=== PATIENT | male | born 1980 | race Caucasian/White ===

== ENCOUNTER 2019-07-13 15:11 | Emergency (ER) | payer OTHER, SELFPAY ==
[2019-07-13 15:20] VITALS: BP 145/84; PULSE 90; RESP 18; TEMP 36.9; O2SAT 98; BMI 27.8
[2019-07-13 15:29] VITALS: BP 145/96; PULSE 96; RESP 24; TEMP 36.9; O2SAT 97; BMI 27.8
--- NOTE | 2019-07-13 15:29 | XR_ITS ---
PROCEDURE: XR RIBS RT 2V CLINICAL INDICATION: PAIN COMPARISON: No exams were available for comparison FINDINGS: Multiple views of the right ribs show no obvious fracture. No lytic or blastic change. Consider follow-up in 7-[address] with 3D reformats if pain persists Frontal view of the chest shows no acute finding IMPRESSION: No acute findings. Dictated by: Cornelius Dallas MD 07/13/2019 17:02 Electronically signed by Cornelius Dallas MD in [place] 07/13/2019 17:02
--- NOTE | 2019-07-13 15:47 | HMH.EDUTC ---
[facility] [place]: Costochond[place] Disposition: Home, Self-Care Condition on Discharge: Good Instructions: DI for Rib Contusion Additional Instructions: Make sure you cough and deep breath regularly. Take the ibuprofen as prescribed. Follow up with your regular doctor. GO TO THE ER FOR WORSENING SYMPTOMS Prescriptions: Ibuprofen [Ibuprofen 800mg Tablet] 800 mg PO Q8HP PRN #30 tab PRN Reason: Moderate Pain Transmission Status: Received by [facility] Referrals: Provider,Referral, [Primary Care Provider] - Time of Disposition: 16:23 Medical Decision Making - Medical Records Medical records reviewed: No: I reviewed the patient's medical records. - Albert Inquiry Pt receiving controlled substance: No Vital Signs: 07/13/19 15:20 07/13/19 15:29 07/13/19 16:40 Temperature 98.5 F 98.4 F 98.4 F Temperature Source Oral Oral Pulse Rate 96 H Pulse Rate [Right] 90 96 H Respiratory Rate 18 24 24 Blood Pressure 145/96 H Blood Pressure [Right Arm] 145/84 H 145/96 H Blood Pressure Mean [Right Arm] 104 112 Blood Pressure Source [Right Arm] Automatic Cuff Blood Pressure Position [Right Arm] Sitting 02 Sat by Pulse Oximetry 98 97 Oxygen Delivery Method Room Air Orders (Tests/Meds): ED MEDICATIONS Discontinued Medications Generic Name Dose Route Start Last Admin Trade Name Freq PRN Reason Stop Dose Admin Ketorolac Tromethamine 60 mg 07/13/19 16:18 07/13/19 16:30 Toradol 60mg/2ml Vial IM 07/13/19 16:19 60 mg ONCE ONE Administration - Radiology Data #1 Image(s): Chest Image Reviewed: Yes I reviewed the patient's radiology image, Yes I have reviewed radiologist's interpretation Preliminary Findings: No Fracture Seen PROCEDURE: XR RIBS RT 2V CLINICAL INDICATION: PAIN COMPARISON: No exams were available for comparison FINDINGS: Multiple views of the right ribs show no obvious fracture. No lytic or blastic change. Consider follow-up in 7-[address] with 3D reformats if pain persists Frontal view of the chest shows no acute finding IMPRESSION: No acute findings. Dictated by: Cornelius Dallas MD 07/13/2019 17:02 Electronically signed by Cornelius Dallas MD in [place] 07/13/2019 17:02 [facility] [place] [facility] [place] - General Stated complaint: Pain in right rib area Time Seen by Provider: 07/13/19 15:47 Mode of Arrival: Ambulatory Source of Information: Patient Limitations: No Limitations Description of Symptoms (Recalled from Triage Doc. by RN): PATIENT STATES THAT APPROX 2 DAYS AGO HE SNEEZED AND CAUSED SEVERE PAIN TO HIS RIGHT RIB AREA. LAST NIGHT HE SNEEZED AGAIN AND THE PAIN INTENSIFIED. DENIES SOA, HOWEVER STATES PAIN INCREASED WITH TAKING A DEEP BREATH AND CERTAIN MOVEMENT HEENT Symptoms (Recalled from RN notes): No Resp Symptoms (Recalled from RN notes): No Skin Symptoms (Recalled from RN notes): No MS Symptoms (Recalled from RN notes): Yes Functional Status (Recalled from RN notes): WNL - History of Present Illness Provider Complaint: He states that 2 days ago he sneezed very hard and then began having right rib pain with cough, deep breathing and twisting. He denies any shortness of breath. - Related Data Previous Rx's Medication Instructions Recorded Ibuprofen [Ibuprofen 800mg 800 mg PO Q8HP PRN #30 tab 07/13/19 Tablet] Allergies Allergy/AdvReac Type Severity Reaction Status Date / Time No Known Allergies Allergy Unverified 01/25/17 14:52 - Worker's Comp Is this a Worker's Comp case?: No [facility] History - Hepatitis A Screen Drug use history?: No High risk sexual behaviors?: No History of sexually transmitted infection?: No Currently employed?: No Childcare worker?: No Do you have indoor plumbing?: Yes Do you have electricity?: Yes Attestation statement:: This patient has been screened for Hepatitis A risk factors. I have reviewed the patient's past m
[2019-07-13 16:40] VITALS: BP 145/96; PULSE 96; RESP 24; TEMP 36.9; O2SAT 97
== END 2019-07-13 16:45 | disposition home or self-care (01) ==
PROVIDERS: Emergency Provider Nurse Practitioner Family
DX: M94.0 Chondrocostal junction syndrome [Tietze] (principal)
CPT/HCPCS: 71100; 96372; 99201; 99202

== ENCOUNTER 2019-09-11 07:04 | Emergency (ER) | payer OTHER, SELFPAY ==
[2019-09-11 07:17] VITALS: BP 116/84; PULSE 91; RESP 17; TEMP 36.6; O2SAT 97; BMI 27.8
--- NOTE | 2019-09-11 07:59 | HMH.EDURI ---
ED Disposition Clinical Impression: Upper respiratory infection, Viral infection Disposition: Home, Self-Care Condition on Discharge: Good Instructions: DI for Acute Bronchitis Prescriptions: Azithromycin 250 mg PO DAILY 5 Days #6 tab Transmission Status: Pending to [facility] Referrals: PCP,No [Primary Care Provider] - - Critical Care Critical Care Time: No Attestation: On 09/11/19, the high probability of a clinically significant, sudden or life threatening deterioration of the following system(s) required my full and direct attention, intervention and personal management. The time I documented below is in addition to time spent performing reported procedures but includes the following listed in this critical care notation. Medical Decision Making - Medical Records Medical records reviewed: Yes: I reviewed the patient's medical records. - Albert Inquiry Pt receiving controlled substance: No Vital Signs: 09/11/19 07:17 Temperature 97.8 F Temperature Source Oral Pulse Rate [Right Radial] 91 H Respiratory Rate 17 Blood Pressure [Right Arm] 116/84 Blood Pressure Mean [Right Arm] 94 02 Sat by Pulse Oximetry 97 Oxygen Delivery Method Room Air - Lab Data Lab results reviewed: Yes: I reviewed the patient's lab results. Orders (Tests/Meds): ORDERS Category Date Time Status SARS-CoV-2, REGINALD Stat Lab 09/11/19 07:53 Ordered URI/Sore Throat HPI - General Chief Complaint: Upper Respiratory Infection Stated Complaint: sore throat and runny nose Time Seen by Provider: 09/11/19 07:50 Mode of Arrival: Ambulatory Source of Information: Patient Limitations: No Limitations Description of Symptoms (Recalled from ER Triage Doc. by RN): pt reports to ed with c/o sore throat and runny nose. pt denies fever. pt states that his boss wanted him checked out before he came to work. - History of Present Illness HPI Narrative: 39-year-old male presents the emergency room with sore throat and congestion. He states his sore throat started 2 days ago and patient denies any other symptoms except for rhinorrhea. Patient denies any overt or subjective fever shakes or chills. Patient denies any loss of taste or smell patient denies any malaise or body aches. Patient denies any shortness of breath. - Related Data Previous Rx's Medication Instructions Recorded Ibuprofen [Ibuprofen 800mg 800 mg PO Q8HP PRN #30 tab 07/13/19 Tablet] Azithromycin 250 mg PO DAILY 5 Days #6 tab 09/11/19 Allergies Allergy/AdvReac Type Severity Reaction Status Date / Time No Known Allergies Allergy Verified 09/11/19 07:22 [facility] History - Hepatitis A Screen Drug use history?: No High risk sexual behaviors?: No History of sexually transmitted infection?: No Currently employed?: No Childcare worker?: No Do you have indoor plumbing?: Yes Do you have electricity?: Yes Attestation statement:: This patient has been screened for Hepatitis A risk factors. I have reviewed the patient's past medical history: Yes Medical History: Denies:: Diabetes Mellitus Type 1, Diabetes Mellitus Type 2 - Social History Smoking Status: Current every day smoker # Packs/Day (cigarettes): 1 Alcohol Intake: never Occupational Status: employed ROS Obtained: Yes All systems reviewed & no additional complaints - Constitutional Constitutional: Reports system reviewed and no additional complaints, except as docu - Eyes Eyes: Reports system reviewed and no additional complaints, except as docu - ENT Ears, Nose, Mouth, and Throat: Reports system reviewed and no additional complaints, except as docu - Cardiovascular Cardiovascular: Reports system reviewed and no additional complaints, except as docu - Respiratory Respiratory: Yes system reviewed and no additional complaints, except as docu - Gastrointestinal Gastrointestingal: Reports: system reviewed and no additional complaints, except as docu - Genitourinary
--- NOTE | 2019-09-11 08:03 | PC.NURSE ---
ER MD gave verbal order for Dexamethasone 10 mg IM one time dose.
[2019-09-11 08:16] VITALS: BP 119/79; PULSE 85; RESP 16; TEMP 36.6; O2SAT 99
[2019-09-12 12:48] LABS: Covid-19 Nasal PCR Sendout Lex Not Detected
== END 2019-09-11 08:19 | disposition home or self-care (01) ==
PROVIDERS: Emergency Provider Family Medicine
DX: J06.9 Acute upper respiratory infection, unspecified (principal); Z03.818 Encounter for observation for suspected exposure to other biological agents ruled out; F17.210 Nicotine dependence, cigarettes, uncomplicated
CPT/HCPCS: 96372; 99282; U0004

== ENCOUNTER 2020-06-11 20:08 | Emergency (ER) | payer OTHER, SELFPAY ==
[2020-06-11 20:21] VITALS: BP 131/86; PULSE 76; RESP 18; TEMP 36.9; O2SAT 100; BMI 27.8
--- NOTE | 2020-06-11 20:26 | HMH.EDUTC ---
[facility] [place]: Encounter for laboratory testing for COVID-19 virus Disposition: Home, Self-Care Condition on Discharge: Good Instructions: DI for COVID-19 (Suspected or Confirmed ), COVID-19: Testing and Tracing, Preventing the Spread of Coronavirus Discharge Instructions Additional Instructions: *Monitor Temp, Over the counter Motrin or Tylenol as directed/as needed Tylenol every 4 hours and Motrin every 6 hours (as long as your family doctor has told you that you can take it) for fever or pain. and straight to ER if unable to lower temp less than 101.0 after medication given Follow up IMMEDIATELY for new or worsening symptoms or no Noticeable improvement over the next 48-72 hours. 911 for difficulty breathing or swallowing You were tested for today for COVID19 your test result should be back in the next 24-48 hours, you may call to the [facility] to see if your test results are back in the next 48 hours [phone] [facility] hours are 9am-9pm You was given a handout with instructions for Self Quarantine and Self isolation for while you wait on test results and what to do if they are positive If you are positive the Health Dept will be contacting you also Referrals: Provider,Referral, MD [Primary Care Provider] - As needed Forms: Work/School Release Time of Disposition: 20:29 Medical Decision Making - Albert Inquiry Pt receiving controlled substance: No Albert was queried for this patient: No Vital Signs: 06/11/20 20:21 Temperature 98.4 F Temperature Source Oral Pulse Rate [Right Brachial] 76 Respiratory Rate 18 Blood Pressure [Right Arm] 131/86 Blood Pressure Mean [Right Arm] 101 Blood Pressure Source [Right Arm] Automatic Cuff Blood Pressure Position [Right Arm] Sitting 02 Sat by Pulse Oximetry 100 [facility] [place] - General Stated complaint: covid test Time Seen by Provider: 06/11/20 20:26 Mode of Arrival: Family Vehicle Description of Symptoms (Recalled from Triage Doc. by RN): Pt needing covid test for work. No symptoms or direct exposure. HEENT Symptoms (Recalled from RN notes): No Resp Symptoms (Recalled from RN notes): No Skin Symptoms (Recalled from RN notes): No MS Symptoms (Recalled from RN notes): No Functional Status (Recalled from RN notes): wnl - History of Present Illness Provider Complaint: Patient states that he was around someone at work whos daughter tested positive for COVID earlier today and his boss wanted him to come in and get tested States that he is not having any symptoms at this time and was not directly around the child that was positive - Related Data Previous Rx's Medication Instructions Recorded Ibuprofen [Ibuprofen 800mg 800 mg PO Q8HP PRN #30 tab 07/13/19 Tablet] Azithromycin 250 mg PO DAILY 5 Days #6 tab 09/11/19 Allergies Allergy/AdvReac Type Severity Reaction Status Date / Time No Known Allergies Allergy Verified 09/11/19 07:22 - Worker's Comp Is this a Worker's Comp case?: No [facility] History - Hepatitis A Screen Drug use history?: No High risk sexual behaviors?: No History of sexually transmitted infection?: No Currently employed?: No Childcare worker?: No Do you have indoor plumbing?: Yes Do you have electricity?: Yes Attestation statement:: This patient has been screened for Hepatitis A risk factors. I have reviewed the patient's past medical history: Yes Medical History: Denies:: Diabetes Mellitus Type 1, Diabetes Mellitus Type 2 - Social History Smoking Status: Never smoker # Packs/Day (cigarettes): 1 Alcohol Intake: never Occupational Status: employed Household Members: family ROS Obtained: Yes All systems reviewed & no additional complaints, Yes Systems reviewed as appropriate & no additional complaints - Constitutional Constitutional: Reports system reviewed and no additional complaints, except as docu, Denies body ache, Denies chills, Denies fever(s) - ENT Ears, Nose, Mouth, and Throat: Reports system re
[2020-06-11 20:41] VITALS: BP 131/86; PULSE 76; RESP 19; TEMP 36.9; O2SAT 100
--- NOTE | 2020-06-13 12:10 | PC.NURSE ---
pt notified of positive covid result
== END 2020-06-12 12:01 | disposition home or self-care (01) ==
PROVIDERS: Emergency Provider Nurse Practitioner
DX: U07.1 COVID-19 (principal)
CPT/HCPCS: 99202; G0463; U0003

== ENCOUNTER 2020-10-30 19:30 | Emergency (ER) | payer OTHER, SELFPAY ==
[2020-10-30] VITALS (8 sets, daily range): BP systolic 111–171; BP diastolic 80–106; PULSE 90–108; RESP 16–21; TEMP 36.8–37.2; O2SAT 95–99; BMI 27.7; BMI 30.4
--- NOTE | 2020-10-30 19:32 | XR_ITS ---
PROCEDURE INFORMATION: Exam: XR Chest Exam date and time: 10/30/2020 7:32 PM Age: 40 years old Clinical indication: Chest wall pain; Patient HX: Left sided chest pain TECHNIQUE: Imaging protocol: XR of the chest. Views: 1 view. COMPARISON: CR XR RIBS RT 2V 07/13/2019 3:47 PM FINDINGS: Lungs: Unremarkable. No consolidation. Pleural spaces: Unremarkable. No pleural effusion. No pneumothorax. Heart/Mediastinum: Unremarkable. No cardiomegaly. Bones/joints: Unremarkable. IMPRESSION: No acute findings.
--- NOTE | 2020-10-30 19:32 | ECG_ITS ---
APPROVED REPORT Exam: Resting ECG HR:104 bpm ECG Measurements Heart Rate 104 AXES DE 142 P 63 QRSd 78 QRS 57 QT 320 T 56 QTc 420 Conclusion Sinus tachycardia Late R wave progression Abnormal ECG Electronically signed by : Tao Romo MD 10/31/2020 17:37:00
[2020-10-30 19:57] LABS: Anion Gap 18.6 mEq/L (5-15); Blood Urea Nitrogen 15 mg/dl (9-20); Calcium 9.4 mg/dl (8.4-10.2); Carbon Dioxide 18 mmol/L (22.0-30.0); Chloride 108 mmol/L (98-107); Creatinine Clearance Estimated 139 mL/min (50-200); Estimated Glomerular Filt Rate 93 ml/min (>60); GFR (African American) 113 ML/MIN (>60); Glucose 97 mg/dl (74-100); Potassium 4.6 mmoL/L (3.5-5.1); Sodium 140 mmol/L (136-145)
[2020-10-30 20:02] LABS: C-Reactive Protein 6.1 mg/L (0-4)
[2020-10-30 20:16] LABS: Procalcitonin 0.051 ng/mL (0.0-2.0)
[2020-10-30 20:20] LABS: Troponin I < 0.01 ng/ml (0.00-0.034)
--- NOTE | 2020-10-30 20:31 | HMH.EDCP ---
ED Disposition Clinical Impression: Chest pain Qualifiers: Chest pain type: precordial pain Qualified Code(s): R07.2 - Precordial pain Disposition: Home, Self-Care Condition on Discharge: Good Instructions: DI for Chest Pain Additional Instructions: see card at 10 am for follow up and recheck ed if needed and take meds Prescriptions: Aspirin [Aspirin 81mg EC Tab] 81 mg PO DAILY #30 tab Prescription Printed Bisoprolol Fumarate [Bisoprolol 5mg Tablet] 5 mg PO DAILY #30 tab Prescription Printed Atorvastatin Calcium [Lipitor 20mg Tab] 20 mg PO HS #30 tab Prescription Printed Referrals: Provider,Referral, MD [Primary Care Provider] - - Critical Care Critical Care Time: No Attestation: On 10/30/20, the high probability of a clinically significant, sudden or life threatening deterioration of the following system(s) required my full and direct attention, intervention and personal management. The time I documented below is in addition to time spent performing reported procedures but includes the following listed in this critical care notation. Medical Decision Making - Medical Records Medical records reviewed: Yes: I reviewed the patient's medical records. - Albert Inquiry Pt receiving controlled substance: No Vital Signs: 10/30/20 19:30 10/30/20 21:26 Temperature 98.9 F Temperature Source Oral Pulse Rate 96 H Pulse Rate [Right] 108 H Respiratory Rate 18 16 Blood Pressure 124/85 Blood Pressure [Right Arm] 171/106 H Blood Pressure Mean [Right Arm] 127 Blood Pressure Source Automatic Cuff Blood Pressure Position Sitting 02 Sat by Pulse Oximetry 98 95 Oxygen Delivery Method Room Air Room Air - Lab Data Lab results reviewed: Yes: I reviewed the patient's lab results. Lab Results 10/30/20 19:43: Sodium 140, Potassium 4.6, Chloride 108 H, Carbon Dioxide 18 L, Anion Gap 18.6 H, BUN 15, Creatinine 0.90, Estimated Creat Clear 139, Estimated GFR 93, Est GFR ( Amer) 113, Glucose 97, Calcium 9.4, Troponin I < 0.01, C-Reactive Protein 6.1 H, Procalcitonin 0.051 Result diagrams: 10/30/20 19:43 Orders (Tests/Meds): ED MEDICATIONS Generic Name Dose Route Start Last Admin Trade Name Freq PRN Reason Stop Dose Admin Sodium Chloride 1,000 mls @ 999 mls/hr 10/30/20 19:45 Sod Chlor 0.9% 1000ml Bag IV 10/30/20 20:45 .Q1H1M STACEY Discontinued Medications Generic Name Dose Route Start Last Admin Trade Name Kellie PRN Reason Stop Dose Admin Aspirin 324 mg 10/30/20 19:42 Aspirin 81mg Chewable Tablet PO 10/30/20 19:43 ONCE ONE ORDERS Category Date Time Status Complete Blood Count Auto Diff Stat Lab 10/30/20 19:32 Ordered Erythrocyte Sedimentation Rate Stat Lab 10/30/20 19:32 Ordered Lipid Panel Stat Lab 10/30/20 19:43 Received Rapid PCR Covid and Flu A/B Stat Lab 10/30/20 19:42 Ordered Troponin I Q3H Lab 10/30/20 22:45 Ordered Troponin I Q3H Lab 10/31/20 01:45 Ordered - Radiology Data #1 Image(s): Chest Image Reviewed: Yes I have reviewed radiologist's interpretation Preliminary Findings: Normal/NAD - ECG Data Tracing #1 Normal Sinus Rhythm: Yes Ischemic changes: non-specific ST-T wave changes - Physician Consults Physician Consulted: collins Reason -: Pt condition Medical Decision Narrative: has chest pain with positive risk factors - will need to see card and have eval but pt wishes at this time to do it as op Chest Pain HPI - General Chief Complaint: Chest Pain Stated Complaint: Chest Pain Time Seen by Provider: 10/30/20 20:31 Mode of Arrival: Ambulatory Source of Information: Patient, Medical Record Limitations: No Limitations Description of Symptoms (Recalled from ER Triage Doc. by RN): C/O 7/10 LEFT SIDED CHEST PAIN, NON-RADIATING, THAT STARTED AT 1PM TODAY WHILE AT WORK FENCING WITH INTERMITTENT SOB. - History of Present Illness HPI narrative: pt with ant chest pain which pt has had over the last
[2020-10-30 21:41] LABS: Chol/HDL Ratio 8.5 (1-3.5); Cholesterol 230 mg/dl (140-200); HDL Cholesterol 27 mg/dl (40-60); Triglycerides 227 mg/dl (30-150); VLDL Cholesterol 45 mg/dL (0-40)
[2020-10-30 21:51] LABS: Direct LDL Cholesterol 163.07 mg/dL (100-129)
== END 2020-10-30 22:02 | disposition home or self-care (01) ==
PROVIDERS: Emergency Provider Emergency Medicine
DX: R07.2 Precordial pain (principal); F17.210 Nicotine dependence, cigarettes, uncomplicated
CPT/HCPCS: 71045; 80048; 80061; 84145; 84484; 86140; 93005; 96365; 99283

== ENCOUNTER → 2020-11-21 12:46 | Outpatient (CLI) | payer OTHER, SELFPAY ==
--- NOTE | 2020-11-21 | CA_ITS ---
APPROVED REPORT Exam: Exercise Treadmill Technologist: May Colby, Ht: 6 ft 0 in Wt: 211 lbs BSA: 2.18 m2 HR: 77 bpm BP: 124/80 mmHg Indications: Chest pain Stress Test Details Test: John HR Resting HR: 76 bpm Max Heart Rate (APMHR): 179.827199 bpm Max HR Achieved: 133 bpm Target HR (85% APMHR): 152.166883 bpm % of APMHR: 74.30 Recovery HR: 93 bpm BP Resting BP: 124/80 mmHg Max BP: 170/80 mmHg Recovery BP: 126.0/79.0 mmHg ECG Resting ECG: Sinus Rhythm Clinical Exercise duration: 10:29 min Highest Stage Achieved: Exercise capacity: 12.8 METs Stress ECG Conclusion Exercised 10:28. Stopped due to SOB, resolved in recovery. Pt did not reach target HR but did achieve 74% with no ischemic changes. *stress echo* Max HR: 133bpm % of PM: 74% Max BP: 170/80 MET's: 12.8 Symptoms: No CP (+)SOB during peak exercise. Arrythmias/Ectopy: Occ PVC. ST-T Changes: less than 1.5mm ST Depression. 1) GXT only 2) Did not achieve target HR 3) Appropriate BP response 4) Good exercise tolerance 5) No CP 6)Reached 74% of target HR with no ischemic changes Test Summary REST . . . . . . . Resting REST 04:13 0.0 0.0 76 . 124/ 80 . . Stage 1 01:00 10.0 1.7 96 . . . . Stage 1 02:00 10.0 1.7 102 . . . . Stage 1 03:00 10.0 1.7 107 . 140/ 70 . . Stage 2 01:00 12.0 2.5 111 . . . . Stage 2 02:00 12.0 2.5 114 . . . . Stage 2 03:00 12.0 2.5 117 . 150/ 80 . . Stage 3 01:00 14.0 3.4 119 . . . . Stage 3 02:00 14.0 3.4 119 . . . . Stage 3 03:00 14.0 3.4 121 . 170/ 80 . . Stage 4 01:00 16.0 4.2 130 . . . . Stage 4 01:29 16.0 4.2 133 . . . Stop exercise at 10:29 RECOVERY 01:00 0.0 0.0 110 . . . . RECOVERY 02:00 0.0 0.0 98 . . . . RECOVERY 03:00 0.0 0.0 100 . . . . RECOVERY 04:00 0.0 0.0 95 . 131/ 71 . . RECOVERY 05:00 0.0 0.0 92 . 131/ 71 . . RECOVERY 05:24 0.0 0.0 93 . 126/ 79 . . Electronically signed by : Joaquin Banrard MD 11/24/2020 21:03:10
--- NOTE | 2020-11-21 12:47 | CA_ITS ---
APPROVED REPORT EXAM: Comprehensive 2D, Doppler, and color-flow Echocardiogram Net Developer Consultant: Milla Boles RVT Ht: 6 ft 0 in Wt: 211lbs BSA: 2.18 BP: 120/80 mmHg Indications: cp,smoker,family hx heart disease,soa Stress Test Details HR Max Heart Rate (APMHR): 179.701698 bpm Target HR (85% APMHR): 152.344208 bpm BP ECG Conclusion 1. Patient exercised on John protocol achieved 12.8 mets of workload on treadmill and 74% of the maximum corrected heart rate, patient has adequate blood pressure response, there was no exercise-induced chest discomfort. 2. Resting echocardiogram showed normal left ventricular size and function with no regional wall motion abnormality, with exercise there is increase in contractility of all the segments of the myocardium with hyperdynamic left ventricular systolic response, with no regional wall motion abnormality to suggest underlying ischemic heart disease. Electronically signed by : Joaquin Barnard MD 11/24/2020 21:15:11
--- NOTE | 2020-11-21 12:47 | CA_ITS ---
APPROVED REPORT EXAM: Comprehensive 2D, Doppler, and color-flow Echocardiogram [employer] Supervisor: Paulina Kuhn RDCS Ht: 6 ft 0 in Wt: 211lbs BSA: 2.18 BP: 109/70 mmHg Indications: CP SOA 2D Dimensions LVOT 2.11 cm (M/F) 1.5-2.5 M-Mode Dimensions RVDd 3.14 cm (0.9-2.6) LA Diam 2.96 cm (1.9-4.0) LVDd 4.63 cm (3.5-5.7) Ao Diam 2.59 cm (2.0-3.7) LVDs 3.65 cm (3.5-5.7) IVSd 0.75 cm (0.6-1.1) PWd 0.77 cm (0.6-1.1) EF (Teich) 43.00% FS 21.20% EDV (Teich) 98.80 mL ESV (Teich) 56.30 mL LV Diastology E Decel Time 247.00 (160-240 msec) E/A Ratio 1.0 MED E' 8.70 (< 7 cm/sec) E'/MED E' Ratio 7.64 (>14) LAT E' 10.50 (<10 cm/sec) E/LAT E' Ratio 6.33 (>14) Mitral Valve MV E Max Vinicio. 66.00 (40-130 cm/s) MV A Velocity 66.00 (40-130 cm/s) E/A Ratio 1.01 MV Decel. Time 247.00 (160-240 ms) MV PHT 72.00 ms Left Ventricle Left atrium is normal size, left ventricle is normal size, there is no concentric left ventricular hypertrophy, visually estimated ejection fraction 55% with no regional wall motion abnormality, diastolic parameters are within normal range. Right Ventricle Right atrium and right ventricle are normal size and contractility. Aortic Valve Aortic valve is grossly normal, there is no aortic stenosis or aortic insufficiency. Mitral Valve Mitral valve is grossly normal, there is trace mitral regurgitation. Tricuspid Valve Tricuspid valve grossly normal, there is trace tricuspid regurgitation, tricuspid regurgitation jet velocity is inadequate for calculation of the right ventricular systolic pressure. Pulmonic Valve Pulmonic valve is poorly visualized. Great Vessels Aortic root is normal size. Inferior vena cava is normal size with normal inspiratory collapse. Pericardium No significant pericardial effusion noted. Conclusion 1. Normal left ventricular size, preserved left ventricular systolic function, visually estimated ejection fraction 55% with no regional wall motion abnormality, diastolic parameters are within normal range. 2. Trace mitral and tricuspid regurgitation. 3. No significant pericardial effusion noted. 4. Inferior vena cava is normal size with normal inspiratory collapse. Electronically signed by : Joaquin Barnard MD 11/24/2020 21:18:34
== END ==
PROVIDERS: PCP Emergency Medicine; Visit Provider Internal Medicine Cardiovascular Disease
DX: R06.00 Dyspnea, unspecified (principal); R07.2 Precordial pain; Z72.0 Tobacco use
CPT/HCPCS: 93017; 93306; 93350

== ENCOUNTER 2021-10-13 09:21 | Emergency (ER) | payer OTHER, SELFPAY ==
[2021-10-13 09:59] VITALS: BP 131/89; PULSE 87; RESP 16; TEMP 36.7; O2SAT 97; BMI 27.8
--- NOTE | 2021-10-13 10:13 | EXP.UTC ---
Discharge Plan Disposition Patient Disposition: Home, Self-Care Condition: Good Prescriptions Prescriptions: New azithromycin [Zithromax] 250 mg tablet 250 mg PO UD DOSE PK Qty: 6 0RF Rx Instructions: Take two (2) tablets today, then one (1) tablet days #2 thru #5 methylprednisolone 4 mg Tablets,Dose Pack 4 mg PO DIRECTED Qty: 21 0RF ondansetron 4 mg Tablet,Disintegrating 4 mg PO Q8H PRN (Reason: Nausea) Qty: 20 0RF No Action omeprazole 40 mg capsule,delayed release(DR/EC) 40 mg PO QDAY Qty: 30 1RF Rx Instructions: swallow whole; do not crush, chew, dissolve, or cut/break atorvastatin 20 mg tablet 20 mg PO HS Qty: 30 1RF bisoprolol fumarate 5 mg tablet 5 mg PO DAILY Qty: 30 1RF ibuprofen 800 MG tablet 800 mg PO Q8HP PRN (Reason: Moderate Pain) Qty: 30 0RF aspirin 81 MG tablet,delayed release (DR/EC) 81 mg PO DAILY Qty: 30 0RF Activity Restrictions/Add. Instructions Additional Instructions/Restrictions: Drink plenty of fluids. Take tylenol or ibuprofen for pain or fever. Take the medications as directed. Follow up with your regular doctor. GO TO THE ER FOR ANY WORSENING SYMPTOMS Quarantine until you know the results of your covid-19 test. Notify your school or workplace of your results and follow their instructions regarding return to work/school. Clinical Impressions Clinical Impression: COVID-19 Stand Alone Forms Stand Alone Forms: Work/School Release Instructions Patient Instructions: Coronavirus Disease 2019, Preventing the Spread of Coronavirus Discharge Instructions Discharge ED Provider: Get Estrada [facility] [place] H[place] General Stated complaint: body aches, cough, no smell/taste, runny nose,MICHAEL Mode of Arrival: Ambulatory Source of Information: Patient Limitations: No Limitations Time Seen by Provider: 10/13/21 10:12 Description of Symptoms (Recalled from Triage Doc. by RN): pts daughter had at home positive covid test today. pt c/o headache, no smell/taste, body aches, runny nose. symptoms began two days ago HEENT Symptoms (Recalled from RN notes): Yes Resp Symptoms (Recalled from RN notes): Yes Skin Symptoms (Recalled from RN notes): No MS Symptoms (Recalled from RN notes): No Functional Status (Recalled from RN notes): n/a History of Present Illness Provider Complaint: She had a + covid test today. She denies shortness of breath. Related Data Previous Rx's Medication Instructions Recorded ibuprofen 800 mg tablet 800 mg PO Q8HP PRN Moderate Pain 07/13/19 #30 tabs aspirin 81 mg tablet,delayed 81 mg PO DAILY #30 tabs 10/30/20 release atorvastatin 20 mg tablet 20 mg PO HS #30 tabs 11/07/20 bisoprolol fumarate 5 mg tablet 5 mg PO DAILY #30 tabs 11/07/20 omeprazole 40 mg capsule,delayed 40 mg PO QDAY #30 caps 11/07/20 release azithromycin 250 mg tablet 250 mg PO UD DOSE PK #6 tabs 10/13/21 (Zithromax) methylprednisolone 4 mg tablets in 4 mg PO DIRECTED #21 tabs 10/13/21 a dose pack ondansetron 4 mg disintegrating 4 mg PO Q8H PRN Nausea #20 tabs 10/13/21 tablet Allergies Allergy/AdvReac Type Severity Reaction Status Date / Time No Known Allergies Allergy Verified 10/13/21 10:02 Worker's Comp Is this a Worker's Comp case?: No PFSH PFSH Social History Smoking Status: Current every day smoker alcohol intake: never substance use type: denies use current occupational status: employed Travel in the last 8 weeks: Inside the [place] household members: family ROS Obtained: Yes All systems reviewed & no additional complaints except as documented Constitutional Constitutional: Reports system reviewed and no additional complaints, except as documented, Denies chills and Denies fever(s) Eyes Eyes: Denies eye discharge ENT Ears, Nose, Mouth, and Throat: Denies dysphagia, Denies sore throat and Denies throat swelling Cardiovascular Cardi
[2021-10-13 10:45] VITALS: BP 131/89; PULSE 87; RESP 16; TEMP 36.7
== END 2021-10-13 10:45 | disposition home or self-care (01) ==
PROVIDERS: Emergency Provider Nurse Practitioner Family
DX: U07.1 COVID-19 (principal); M79.10 Myalgia, unspecified site; R11.0 Nausea; R51.9 Headache, unspecified; F17.210 Nicotine dependence, cigarettes, uncomplicated; Z79.52 Long term (current) use of systemic steroids; Z79.82 Long term (current) use of aspirin; Z79.899 Other long term (current) drug therapy
CPT/HCPCS: 99213; C9803; G0463; U0003; U0005

== ENCOUNTER 2022-10-17 20:17 | Observation (INO) | payer OTHER, SELFPAY ==
[2022-10-17 20:30] VITALS: BP 130/70; PULSE 100; RESP 20; O2SAT 98
[2022-10-17 20:32] VITALS: BP 147/87; PULSE 121; RESP 19; TEMP 37.3; O2SAT 98; BMI 29.8
--- NOTE | 2022-10-17 20:40 | XR_ITS ---
PROCEDURE INFORMATION: Exam: XR Chest Exam date and time: 10/17/2022 8:49 PM Age: 42 years old Clinical indication: Shortness of breath; Additional info: Shortness of air TECHNIQUE: Imaging protocol: Radiologic exam of the chest. Views: 2 views. COMPARISON: CR XR CHEST AP 10/30/2020 7:59 PM FINDINGS: Lungs: Lungs are clear. Pleural spaces: No pleural effusion. No pneumothorax. Heart/Mediastinum: Normal cardiomediastinal silhouette. Bones/joints: No acute osseous abnormality. IMPRESSION: No acute findings.
[2022-10-17 20:46] LABS: Coronavirus 19, PCR Not Detected (NotDetected); Influenza A, PCR Not Detected (NotDetected); Influenza B, PCR Not Detected (NotDetected)
--- NOTE | 2022-10-17 20:49 | HMH.EDGENADL ---
Discharge Plan Disposition Patient Disposition: Admitted As Inpatient Clinical Impressions Clinical Impression: Acute exacerbation of chronic obstructive pulmonary disease Discharge ED Provider: Jamaal Hutchinson General Adult HPI General Chief complaint: Shortness of Breath/Dyspnea Stated complaint: soa sore throat cough Time Seen by Provider: 10/17/22 20:21 Mode of Arrival: Family Vehicle Source of Information: Patient Limitations: No Limitations Description of Symptoms (Recalled from ER Triage Doc. by RN): patient presents with CC of shortness of air, productive cough, wheezing, and overall general malaise; patient reports being tested for covid but that it was negative. fever and myalgia has continued. History of Present Illness HPI narrative: 42-year-old male with history of COPD, MS status post stenting, not on anticoagulation presenting with shortness of breath. Patient states that he started feeling like crap, a couple days prior to arrival. Multiple people in the household with similar viral symptoms. Patient states that he cannot breathe, having body aches. Has a cough is productive of greenish-yellow sputum. Denies fevers, nausea or vomiting, diarrhea, abdominal pain, chest pain, or any other concerns. Related Data Home Medications Medication Instructions Recorded Confirmed No Known Home Medications 10/17/22 10/17/22 Allergies Allergy/AdvReac Type Severity Reaction Status Date / Time No Known Allergies Allergy Verified 10/13/21 10:02 [facility] Disclaimer: The information contained in this section may have been updated after the patient was seen, as this information can be updated by other users. Social History Smoking Status: Current every day smoker alcohol intake: never substance use type: denies use current occupational status: employed Travel in the last 8 weeks: [place] the [place] household members: family ROS Obtained: Yes All systems reviewed & no additional complaints except as documented Physical Exam General General appearance: alert, in no apparent distress and other ( ) Head Head exam: atraumatic and normocephalic Eye Eye exam: Present normal appearance, PERRL and EOMI ENT ENT exam: Present mucous membranes dry Neck Neck exam: Present normal inspection, full ROM and trachea midline Respiratory Respiratory exam: Present wheezes; Absent normal lung sounds bilaterally, respiratory distress, stridor, accessory muscle use or prolonged expiratory phase Cardiovascular Cardiovascular exam: Present regular rate and normal rhythm Abdominal Exam Abdominal exam: Present soft; Absent distention, tenderness, guarding, rebound, rigidity or normal bowel sounds Extremities Exam Extremities exam: Absent edema Neurological Exam Neurological exam: Present alert, oriented X3, CN II-XII intact and normal gait; Absent motor sensory deficit Skin Skin exam: Present warm and dry; Absent diaphoresis or erythema Medical Decision Making Medical Records Medical records reviewed: Yes I reviewed the patient's medical records. Albert Inquiry Pt receiving controlled substance: No Albert was queried for this patient: No Vital Signs: 10/17/22 20:32 10/17/22 20:30 10/17/22 21:15 Temperature 99.2 F Temperature Source Oral Pulse Rate 100 H 81 Pulse Rate [Right Brachial] 121 H Respiratory Rate 19 20 Blood Pressure 130/70 Blood Pressure [Right Arm] 147/87 H Blood Pressure Mean 90 Blood Pressure Mean [Right Arm] 107 Blood Pressure Source Blood Pressure Source [Right Arm] Automatic Cuff Blood Pressure Position Blood Pressure Position [Right Arm] Sitting 02 Sat by Pulse Oximetry 98 98 Oxygen Delivery Method Room Air 10/17/22 21:35 10/17/22 23:48 Temperature 98.2 F Temperature Source Oral Pulse Rate 83 78 Pulse Rate [Right Brachial] Respiratory Rate 16 Blood Pressure 131/72 Blood Pressure [
[2022-10-17 20:52] LABS: Basophils # 0.1 K/mm3 (0-0.2); Basophils % 0.3 % (0.1-2.0); Eosinophils # 0.3 K/mm3 (0.0-0.4); Eosinophils % 1.8 % (0.1-12.0); Hematocrit 50.3 % (42.0-52.0); Hemoglobin 16.1 g/dL (14.1-18.0); Lymphocytes # 1.6 K/mm3 (0.7-4.5); Lymphocytes % 8.3 % (10-50); Mean Corpuscular Hemoglobin 29.2 pg (27.0-31.2); Mean Corpuscular Volume 91.4 fl (80-94); Mean Platelet Volume 7.7 fl (7.4-10.4); Monocytes # 0.8 K/mm3 (0.1-1.0); Monocytes % 4.3 % (1.7-9.3); Neutrophils # 15.9 K/mm3 (1.8-7.8); Neutrophils % 85.4 % (37.0-80.0); Platelet Count 269 K/mm3 (142-424); Red Blood Count 5.51 M/mm3 (4.60-6.20); Red Cell Distribution Width 13.5 % (11.5-17.5); White Blood Count 18.7 K/mm3 (4.8-10.8)
[2022-10-17 20:53] LABS: VBG Base Excess -4.3 mmol/L (-2.4-2.3); VBG HCO3 20.9 mmol/L (23-30); VBG Oxygen Saturation 81.7 % (50-70); VBG PCO2 36.3 mmol/L (35-51); VBG PH 7.38 mmol/L (7.31-7.41); VBG PO2 44.7 mmol/L (28-40)
[2022-10-17 20:54] LABS: MANUAL DIFFERENTIAL MANUAL DIFFERENTIAL (MANUAL DIFF)
[2022-10-17 20:55] LABS: Chloride 109 mmol/L (98-107)
[2022-10-17 20:56] LABS: Potassium 4.3 mmoL/L (3.5-5.1); Sodium 143 mmol/L (136-145)
[2022-10-17 20:58] LABS: Alanine Aminotransferase 42 U/L (12-78); Alkaline Phosphatase 113 U/L (38-126); Aspartate Amino Transferase 36 U/L (17-59); Bilirubin,Total 0.4 mg/dl (0.2-1.3); Blood Urea Nitrogen 15 mg/dl (9-20); Creatinine Clearance Estimated 106 mL/min (50-200); Estimated Glomerular Filt Rate 60 ml/min (>60); GFR (African American) 73 ML/MIN (>60)
--- NOTE | 2022-10-17 20:58 | ECG_ITS ---
APPROVED REPORT Exam: Resting ECG HR:105 bpm ECG Measurements Heart Rate 105 AXES TX 153 P 65 QRSd 94 QRS 59 QT 302 T 62 QTc 363 Conclusion SINUS TACHYCARDIA ABNORMAL RHYTHM ECG UNCONFIRMED REPORT Electronically signed by : Tao Romo MD 10/18/2022 07:09:41
[2022-10-17 20:59] LABS: Albumin Level 4.5 g/dl (3.5-5.0); Albumin/Globulin Ratio 1.3 (1.1-1.8); Anion Gap 17.3 mEq/L (5-15); Calcium 10.2 mg/dl (8.4-10.2); Carbon Dioxide 21 mmol/L (22.0-30.0); Globulin 3.4 g/dL (1.3-3.2); Glucose 86 mg/dl (74-100); Total Protein,Serum 7.9 g/dl (6.3-8.2)
[2022-10-17 21:00] LABS: Lactic Acid 2.2 mmol/L (0.7-2.1)
--- NOTE | 2022-10-17 21:01 | PC.NURSE ---
pt has returned from radiology.
[2022-10-17 21:15] VITALS: PULSE 81
[2022-10-17 21:16] LABS: Eosinophils % 1 % (0-3); Lymphocytes % 7 % (10-50); Monocytes % 1 % (2-9); Neutrophils % 90 % (42-76); Platelet Estimate Normal; RBC Morphology Normal; Total Cells Counted 100; Troponin I < 0.01 ng/ml (0.00-0.034)
--- NOTE | 2022-10-17 21:29 | PC.NURSE ---
DISCUSSED POSSIBLE ATB USAGE FOR CARE. MD IS CURRENTLY WAITING ON COVID RESULT BEFORE ORDERING ANTIBIOTICS. DISCUSSED POSSIBLE SEPSIS FLUID BOLUS. WAITING ON COVID DIAGNOSIS. IVF'S INFUSING AT THIS TIME.
[2022-10-17 21:35] VITALS: PULSE 83
--- NOTE | 2022-10-17 21:41 | PC.NURSE ---
VERBAL ORDERS TO CONSULT PHARM FOR VANC AND CEFEPIME DOSING DUE TO NEG COVID. CALLED [phone] AND SPOKE WITH HAKEEM
--- NOTE | 2022-10-17 23:09 | PC.NURSE ---
HOUSE NOTIFIED OF NEED FOR BED
--- NOTE | 2022-10-17 23:22 | PC.NURSE ---
spoke with Damir ALICIA and confirmed vanc dose
[2022-10-17 23:48] VITALS: BP 131/72; PULSE 78; RESP 16; TEMP 36.8; O2SAT 98
--- NOTE | 2022-10-17 23:51 | EXP.HP ---
History of Present Illness *Admission Date: 10/17/22 *Reason for visit:: SOB *History of present illness: This is a 42-year-old male with history of heavy smoker, 1PPD, HLD, HTN presented with shortness of breath, difficulty breathing with generalized malaise and body aches. Patient states that he started feeling like crap, . Started couple days prior to arrival. Multiple people in the household with similar viral symptoms. Patient stated that he cannot breathe, having body aches. Has a cough is productive of greenish-yellow sputum. Denies fevers, nausea or vomiting, diarrhea, abdominal pain, chest pain, or any other concerns. Amdmitted PFSH [facility] Disclaimer: The information contained in this section may have been updated after the patient was seen, as this information can be updated by other users. Social History (Updated 10/18/22 @ 00:43 by Marcella Jackson RN) Smoking Status: Current every day smoker alcohol intake: never substance use type: denies use current occupational status: employed Travel in the last 8 weeks: [place] the [place] household members: family Review of Systems Review of Systems Review of systems:: pertinent systems reviewed and negative unless documented below Meds Home Medications and Allergies Home Medications Medication Instructions Recorded Confirmed Type acetaminophen 325 mg tablet 650 mg PO Q4HP PRN Fever Or Mild 10/18/22 Rx Pain (1-3) 5 days #0 tabs albuterol sulfate 90 mcg/actuation 2 inh inhalation Q6H PRN shortness 10/18/22 Rx breath activated powder inhaler of breath or wheezing 30 days #1 ea azithromycin 250 mg tablet 250 mg PO DAILY 4 days #4 tabs 10/18/22 Rx inhalational spacing device #1 ea 10/18/22 Rx (Aerochamber Plus Flow-Vu) New Prescriptions to Start Prescriptions: albuterol sulfate Get Clemens azithromycin Get Clemens inhalational spacing device [Aerochamber Plus Flow-Vu] Get Clemens Allergies Allergy/AdvReac Type Severity Reaction Status Date / Time No Known Allergies Allergy Verified 10/13/21 10:02 Exam Data for Last 24 hours Vital signs and Labs for Last 24 Hours: Temp Pulse Resp BP Pulse Ox O2 Del Method 98.2 F 78 16 131/72 98 Room Air 10/17/22 23:48 10/17/22 23:48 10/17/22 23:48 10/17/22 23:48 10/17/22 20:32 10/17/22 23:48 Laboratory Results - last 24 hr 10/17/22 20:35: SARS-CoV-2 (PCR) Not detected, Influenza A Untype (PCR) Not detected, Influenza Type B (PCR) Not detected 10/17/22 20:42: WBC 18.7 H, RBC 5.51, Hgb 16.1, Hct 50.3, MCV 91.4, MCH 29.2, MCHC 32.0, RDW 13.5, Plt Count 269, MPV 7.7, Neut % (Auto) 85.4 H, Lymph % (Auto) 8.3 L, [place] % (Auto) 4.3, Eos % (Auto) 1.8, Baso % (Auto) 0.3, Neut # (Auto) 15.9 H, Lymph # (Auto) 1.6, [place] # (Auto) 0.8, Eos # (Auto) 0.3, Baso # (Auto) 0.1, Total Counted 100, Neutrophils % (Manual) 90 H, Lymphocytes % (Manual) 7 L, Atypical Lymphs % 1.0, Monocytes % (Manual) 1 L, Eosinophils % (Manual) 1, Platelet Estimate Normal, RBC Morphology Normal, Sodium 143, Potassium 4.3, Chloride 109 H, Carbon Dioxide 21 L, Anion Gap 17.3 H, BUN 15, Creatinine 1.30 H, Estimated Creat Clear 106, Estimated GFR 60, Est GFR ( Amer) 73, Glucose 86, Lactate 2.2 H, Calcium 10.2, Total Bilirubin 0.4, AST 36, ALT 42, Alkaline Phosphatase 113, Troponin I < 0.01, Total Protein 7.9, Albumin 4.5, Globulin 3.4 H, Albumin/Globulin Ratio 1.3 10/17/22 20:43: VBG pH 7.38, VBG pCO2 36.3, VBG pO2 44.7 H, VBG HCO3 20.9 L, VBG Total CO2 22.0 L, VBG O2 Saturation 81.7 H, VBG Base Excess -4.3 L I & O for Last 24 hours: Intake & Output 10/14/22 10/15/22 10/16/22 10/17/22 23:59 23:59 23:59 23:59 Intake Total 2150 / 2150 Balance 2149 Weight 102.512 kg Constitutional Constitutional: mild distress and cooperative *Routine HEENT Exam Head: Present normocephalic and atraumatic Eye: Present EO
--- NOTE | 2022-10-17 23:57 | PC.NURSE ---
pt arrived to floor at this time
[2022-10-18] VITALS: BP 124/54; PULSE 103; RESP 18; TEMP 36.8; O2SAT 95; BMI 29.7
[2022-10-18 00:10] LABS: Reflex Lactic Add Lactic Reflex
[2022-10-18 00:30] LABS: Troponin I < 0.01 ng/ml (0.00-0.034)
[2022-10-18 00:35] LABS: Strep Scrn Group A (Rapid) Negative (Negative)
[2022-10-18 00:41] LABS: Lactic Acid Follow Up (RFLX 1) 1.4 mmol/L (0.7-2.1)
[2022-10-18 03:21] LABS: Troponin I < 0.01 ng/ml (0.00-0.034)
[2022-10-18 04:00] VITALS: BP 102/60; PULSE 103; RESP 18; TEMP 36.6; O2SAT 98; BMI 29.7
--- NOTE | 2022-10-18 04:19 | PC.NURSE ---
spoke with ly cho 10/18 0000 rocephin retimed because of close dosing with ER cefepime 10/17 2232. rocephin retimed for 0610/18
[2022-10-18 07:12] LABS: ABG Base Excess -4.4 mmol/L (-2.4-2.3); ABG Oxygen Saturation 96 % (90-100); ABG PCO2 31.2 mmhg (35.0-45.0); ABG PH 7.42 mmol/L (7.35-7.45); ABG PO2 76.3 mmhg (80-100); ABG TCO2 20.9 mmhg (23-27); Oxygen Room Air %
[2022-10-18 07:13] LABS: Allen's Test Acceptable; Source Right Radial
--- NOTE | 2022-10-18 07:27 | HMH.PHAINT1 ---
Pharmacy Intervention Comments: Medication history complete, patient confirmed he takes no medications at home. - Tami Coyne, PharmD Candidate 2023
[2022-10-18 07:37] LABS: Basophils % 0.1 % (0.1-2.0); Eosinophils % 0.2 % (0.1-12.0); Hematocrit 45.1 % (42.0-52.0); Hemoglobin 14.5 g/dL (14.1-18.0); Lymphocytes # 0.9 K/mm3 (0.7-4.5); Lymphocytes % 7.3 % (10-50); Mean Corpuscular HGB Conc 32.2 g/dL (31.8-35.4); Mean Corpuscular Hemoglobin 29.2 pg (27.0-31.2); Mean Corpuscular Volume 90.4 fl (80-94); Monocytes # 0.5 K/mm3 (0.1-1.0); Monocytes % 3.8 % (1.7-9.3); Neutrophils # 10.8 K/mm3 (1.8-7.8); Neutrophils % 88.5 % (37.0-80.0); Platelet Count 264 K/mm3 (142-424); Red Blood Count 4.99 M/mm3 (4.60-6.20); Red Cell Distribution Width 13.6 % (11.5-17.5); White Blood Count 12.2 K/mm3 (4.8-10.8)
[2022-10-18 07:39] LABS: Alanine Aminotransferase 33 U/L (12-78); Albumin/Globulin Ratio 1.3 (1.1-1.8); Alkaline Phosphatase 96 U/L (38-126); Anion Gap 15.2 mEq/L (5-15); Aspartate Amino Transferase 30 U/L (17-59); Bilirubin,Total 0.3 mg/dl (0.2-1.3); Blood Urea Nitrogen 16 mg/dl (9-20); Calcium 8.8 mg/dl (8.4-10.2); Carbon Dioxide 21 mmol/L (22.0-30.0); Chloride 108 mmol/L (98-107); Chol/HDL Ratio 7.3 (1-3.5); Cholesterol 205 mg/dl (140-200); Creatinine Clearance Estimated 152 mL/min (50-200); Estimated Glomerular Filt Rate 92 ml/min (>60); GFR (African American) 111 ML/MIN (>60); Globulin 3.1 g/dL (1.3-3.2); Glucose 155 mg/dl (74-100); HDL Cholesterol 28 mg/dl (40-60); Potassium 4.2 mmoL/L (3.5-5.1); Sodium 140 mmol/L (136-145); Total Protein,Serum 7.1 g/dl (6.3-8.2); Triglycerides 95 mg/dl (30-150); VLDL Cholesterol 19 mg/dL (0-40)
[2022-10-18 07:48] LABS: MANUAL DIFFERENTIAL MANUAL DIFFERENTIAL (MANUAL DIFF)
[2022-10-18 07:50] LABS: Direct LDL Cholesterol 125.89 mg/dL (100-129)
[2022-10-18 07:51] VITALS: BP 139/68; PULSE 107; RESP 18; TEMP 37.2; O2SAT 98
[2022-10-18 11:26] LABS: Lymphocytes % 9 % (10-50); Monocytes % 6 % (2-9); Neutrophils % 85 % (42-76); Platelet Estimate Normal; RBC Morphology Normal; Total Cells Counted 100
--- NOTE | 2022-10-18 11:59 | EXP.DC.SUM ---
General Admission date:: 10/18/22 Discharge date: 10/18/22 HPI HPI HPI: This is a 42-year-old male with history of heavy smoker, 1PPD, HLD, HTN presented with shortness of breath, difficulty breathing with generalized malaise and body aches. Patient states that he started feeling like crap, . Started couple days prior to arrival. Multiple people in the household with similar viral symptoms. Patient stated that he cannot breathe, having body aches. Has a cough is productive of greenish-yellow sputum. Denies fevers, nausea or vomiting, diarrhea, abdominal pain, chest pain, or any other concerns. Amdmitted Hospital Course Hospital Course Hospital Course: 42-year-old male with history of heavy smoker, 1PPD, HLD, HTN presented with shortness of breath, difficulty breathing with generalized malaise and body aches. Patient states that he started feeling like crap, . Started couple days prior to arrival. ER work-up included chest x-ray. Imaging reviewed by myself, concerning for COPD changes, low suspicious of pneumonia. Influenza and COVID swab negative. Labs are remarkable for mild leukocytosis. Elevated creatinine. Initial requirement for oxygen. Able to wean overnight of admission. Tolerated breathing treatments well. Stable on room air meeting criteria for discharge home. Problems addressed during admission as follows: - Reactive Airway disease vs Asthma exacerbation vs COPD: - Leukocytosis: - Hypoxia Patient presented with generalized, body aches. Respiratory panel was done. Including COVID, influenza and strep all negative. Started on ceftriaxone. Transition to azithromycin to complete 5-day course. Stable on room air. Inhaler prescribed. Recommend close follow-up with PCP and further management as an outpatient. - ALEXIS: Elevated creatinine to 1.3. Returned to 0.9 on morning of discharge. -Tobacco abuse: Nicotine patch during admission Stable for discharge home. Close follow-up with PCP. Recommend further evaluation with PFTs. May benefit from pulmonology referral if PFTs are abnormal. Exam Data for Last 24 hours Vital signs and Labs for Last 24 Hours: Temp Pulse Resp BP Pulse Ox O2 Del Method O2 Flow Rate 98.9 F 107 H 18 139/68 98 Room Air 4 10/18/22 07:51 10/18/22 07:51 10/18/22 07:51 10/18/22 07:51 10/18/22 07:51 10/18/22 09:00 10/18/22 00:00 Laboratory Results - last 24 hr 10/17/22 20:35: SARS-CoV-2 (PCR) Not detected, Influenza A Untype (PCR) Not detected, Influenza Type B (PCR) Not detected, Group A Strep Rapid Negative 10/17/22 20:42: WBC 18.7 H, RBC 5.51, Hgb 16.1, Hct 50.3, MCV 91.4, MCH 29.2, MCHC 32.0, RDW 13.5, Plt Count 269, MPV 7.7, Neut % (Auto) 85.4 H, Lymph % (Auto) 8.3 L, [place] % (Auto) 4.3, Eos % (Auto) 1.8, Baso % (Auto) 0.3, Neut # (Auto) 15.9 H, Lymph # (Auto) 1.6, [place] # (Auto) 0.8, Eos # (Auto) 0.3, Baso # (Auto) 0.1, Total Counted 100, Neutrophils % (Manual) 90 H, Lymphocytes % (Manual) 7 L, Atypical Lymphs % 1.0, Monocytes % (Manual) 1 L, Eosinophils % (Manual) 1, Platelet Estimate Normal, RBC Morphology Normal, Sodium 143, Potassium 4.3, Chloride 109 H, Carbon Dioxide 21 L, Anion Gap 17.3 H, BUN 15, Creatinine 1.30 H, Estimated Creat Clear 106, Estimated GFR 60, Est GFR ( Amer) 73, Glucose 86, Lactate 2.2 H, Calcium 10.2, Total Bilirubin 0.4, AST 36, ALT 42, Alkaline Phosphatase 113, Troponin I < 0.01, Total Protein 7.9, Albumin 4.5, Globulin 3.4 H, Albumin/Globulin Ratio 1.3 10/17/22 20:43: VBG pH 7.38, VBG pCO2 36.3, VBG pO2 44.7 H, VBG HCO3 20.9 L, VBG Total CO2 22.0 L, VBG O2 Saturation 81.7 H, VBG Base Excess -4.3 L 10/17/22 23:37: Troponin I < 0.01 10/18/22 00:25: Lactate 1.4 10/18/22 02:40: Troponin I < 0.01 10/18/22 06:43: Specimen Source Right radial, O2 % Room air, ABG pH 7.42, ABG pCO2 31.2 L, ABG pO2 76.3 L, ABG HCO3 20.0 L, ABG Total CO2 20.9 L, ABG O2 Saturation 96, ABG Base Excess -4.4 L, Cornelius Test Acceptable 10/18/22 06:45: WBC 12.2 H D, RBC 4.99, Hgb 14
--- NOTE | 2022-10-21 07:55 | CARE MANAGER ---
Called and spoke with patient regarding recent discharge. Stated that he still feels bad, I advised to move f/u appt up if needed and not wait until Tuesday. No other concerns at time of call.
== END 2022-10-18 15:14 | disposition home or self-care (01) ==
LOC: ER 20:31 → 2ND 23:43
PROVIDERS: Nurse Practitioner Family; Admitting Provider Internal Medicine Adolescent Medicine; Emergency Provider Emergency Medicine; PCP Physician Assistant; Visit Provider Internal Medicine Adolescent Medicine
DX: J44.1 Chronic obstructive pulmonary disease with (acute) exacerbation (principal); I10 Essential (primary) hypertension; F17.210 Nicotine dependence, cigarettes, uncomplicated; E78.5 Hyperlipidemia, unspecified; N17.9 Acute kidney failure, unspecified
CPT/HCPCS: 36415; 71046; 80053; 80061; 82803; 83605; 83735; 84484; 85007; 85025; 87040; 87430; 87636; 93005; 99285; G0378; J0131; J0456; J0696; J3370

== ENCOUNTER → 2022-10-20 12:00 | Outpatient (CLI) | payer OTHER, SELFPAY ==
[2022-10-20 18:57] LABS: Basophils # 0.1 K/mm3 (0-0.2); Basophils % 0.7 % (0.1-2.0); Eosinophils # 0.6 K/mm3 (0.0-0.4); Eosinophils % 6.9 % (0.1-12.0); Hematocrit 52.1 % (42.0-52.0); Hemoglobin 16.6 g/dL (14.1-18.0); Lymphocytes % 34.5 % (10-50); Mean Corpuscular HGB Conc 31.8 g/dL (31.8-35.4); Mean Corpuscular Hemoglobin 29.1 pg (27.0-31.2); Mean Corpuscular Volume 91.6 fl (80-94); Mean Platelet Volume 9.8 fl (7.4-10.4); Monocytes % 11.4 % (1.7-9.3); Neutrophils % 46.5 % (37.0-80.0); Platelet Count 317 K/mm3 (142-424); Red Blood Count 5.69 M/mm3 (4.60-6.20); Red Cell Distribution Width 13.4 % (11.5-17.5); White Blood Count 8.6 K/mm3 (4.8-10.8)
[2022-10-20 19:29] LABS: Alanine Aminotransferase 27 U/L (12-78); Albumin Level 4.3 g/dl (3.5-5.0); Albumin/Globulin Ratio 1.3 (1.1-1.8); Alkaline Phosphatase 116 U/L (38-126); Anion Gap 14.7 mEq/L (5-15); Aspartate Amino Transferase 26 U/L (17-59); Bilirubin,Total 0.2 mg/dl (0.2-1.3); Blood Urea Nitrogen 14 mg/dl (9-20); Calcium 9.6 mg/dl (8.4-10.2); Carbon Dioxide 21 mmol/L (22.0-30.0); Chloride 107 mmol/L (98-107); Chol/HDL Ratio 6.9 (1-3.5); Cholesterol 222 mg/dl (140-200); Estimated Glomerular Filt Rate 92 ml/min (>60); GFR (African American) 111 ML/MIN (>60); Globulin 3.2 g/dL (1.3-3.2); Glucose 77 mg/dl (74-100); HDL Cholesterol 32 mg/dl (40-60); Potassium 4.7 mmoL/L (3.5-5.1); Sodium 138 mmol/L (136-145); Total Protein,Serum 7.5 g/dl (6.3-8.2); Triglycerides 194 mg/dl (30-150); VLDL Cholesterol 39 mg/dL (0-40)
[2022-10-20 19:49] LABS: 25-OH Vitamin D, Total 36.1 ng/mL (30-100)
[2022-10-20 20:00] LABS: Prostate Specific Ag Screen 0.7 ng/ml (0.0-4.0); Thyroid Stimulating Hormone 4.31 uIU/mL (0.465-4.68)
[2022-10-20 21:32] LABS: Direct LDL Cholesterol 143.44 mg/dL (100-129)
[2022-10-20 21:51] LABS: Hemoglobin A1C 5.6 % (4.0-6.0)
== END ==
PROVIDERS: PCP Physician Assistant; Visit Provider Physician Assistant
DX: R06.02 Shortness of breath (principal); R73.09 Other abnormal glucose; E66.9 Obesity, unspecified; Z68.29 Body mass index [BMI] 29.0-29.9, adult; Z12.5 Encounter for screening for malignant neoplasm of prostate
CPT/HCPCS: 80053; 80061; 82306; 83036; 84443; 85025; G0103

== ENCOUNTER → 2022-10-29 12:44 | Outpatient (CLI) | payer OTHER, SELFPAY ==
[2022-10-29 13:50] VITALS: PULSE 96; PULSE 99
== END ==
PROVIDERS: PCP Physician Assistant; Visit Provider Physician Assistant
DX: R06.02 Shortness of breath (principal)
CPT/HCPCS: 94060; 94640; 94727; 94729

== ENCOUNTER → 2022-11-15 09:55 | Outpatient (CLI) | payer OTHER, SELFPAY ==
--- NOTE | 2022-11-15 10:00 | CA_ITS ---
APPROVED REPORT EXAM: Comprehensive 2D, Doppler, and color-flow Echocardiogram Power Electronics Engineer: Esperanza Ventura CRT Ht: 6 ft 0 in Wt: 221lbs BSA: 2.22 BP: 122/90 mmHg Indications: COPD, Shortness of Breath, smoker 2D Dimensions LVOT 2.00 cm (M/F) 1.5-2.5 LVEF (Guillen's) 66.00 % LV Volume 59.00 mL LA Volume 27.00 mL LA Volume Index 12.20 mL/m2 (M/F) 16-34 M-Mode Dimensions RVDd 2.80 cm (0.9-2.6) LA Diam 3.20 cm (1.9-4.0) LVDd 4.40 cm (3.5-5.7) Ao Diam 3.90 cm (2.0-3.7) LVDs 3.00 cm (3.5-5.7) AV Cusp 2.00 cm (1.5-2.6) IVSd 1.50 cm (0.6-1.1) PWd 0.80 cm (0.6-1.1) EF (Teich) 60.10% FS 31.80% EDV (Teich) 87.70 mL ESV (Teich) 35.00 mL LV Diastology E/A Ratio 1.10 MED A' 8.68 cm/s LAT E' 11.90 (<10 cm/sec) LAT A' 11.50 cm/s E/LAT E' Ratio 7.30 (>14) Aortic Valve AoV Peak Vinicio. 118.00 (50-130 cm/s) AO Peak GR. 6.00 mmHg Mitral Valve MV E Max Vinicio. 87.40 (40-130 cm/s) MV A Velocity 81.40 (40-130 cm/s) E/A Ratio 1.10 Pulmonary Valve CO End VMAX 119.00 cm/s PA Accel Time 173.00 (>120 msec) Tricuspid Valve TR P. Velocity 139.00 cm/s RAP Estimate 10.00 mmHg RVSP 18.00 mmHg Left Ventricle The left ventricle is normal size. The left ventricular systolic function is normal. The left ventricular ejection fraction is within the normal range. There is normal left ventricular wall thickness. There is normal LV segmental wall motion. The left ventricular diastolic function is normal. LVEF is 65%. Right Ventricle The right ventricle is normal size. The right ventricular systolic function is normal. Atria The left atrium size is normal. The right atrium size is normal. The interatrial septum is intact with no evidence for an atrial septal defect. Aortic Valve The aortic valve is normal in structure. There is no aortic valvular stenosis. No aortic regurgitation is present. Mitral Valve The mitral valve is normal in structure. No evidence of mitral valve stenosis. Trace mitral regurgitation. Tricuspid Valve The tricuspid valve leaflets are thin and pliable. Trace tricuspid regurgitation. RVSP is normal. Pulmonic Valve The pulmonary valve is normal in structure. Trace pulmonic regurgitation. Great Vessels The aortic root is normal in size. The ascending aorta is not well visualized. IVC is normal in size and collapses >50% with inspiration. Pericardium There is no pericardial effusion. Other Information Study Quality: Adequate Conclusion Normal biventricular systolic function. No significant valvular stenosis or regurgitation. Electronically signed by : Ilana Nails MD 11/17/2022 22:59:20
== END ==
PROVIDERS: PCP Physician Assistant; Visit Provider Physician Assistant
DX: R06.02 Shortness of breath (principal)
CPT/HCPCS: 93306

== ENCOUNTER → 2022-12-23 12:31 | Outpatient (CLI) | payer OTHER, SELFPAY ==
--- NOTE | 2022-12-23 13:49 | CT_ITS ---
FINAL REPORT TECHNIQUE: Axial images were obtained through the chest without contrast. CLINICAL HISTORY: Anmormal CXR, SMOKER COMPARISON: None FINDINGS: There are tiny bulla in the upper lobes bilaterally. No infiltrate is identified. The heart size is normal. There is no pericardial or pleural effusion. Limited images of the upper abdomen are unremarkable. IMPRESSION: No acute process. Tiny upper lobe bulla. Reviewed, Interpreted and Dictated by Cesar Mcmahan MD Transcribed by Jessica Ohara Authenticated and [facility]
== END ==
PROVIDERS: PCP Physician Assistant; Visit Provider Internal Medicine Pulmonary Disease
DX: J44.9 Chronic obstructive pulmonary disease, unspecified (principal); R91.8 Other nonspecific abnormal finding of lung field; Z72.0 Tobacco use
CPT/HCPCS: 71250; 94060

== ENCOUNTER → 2022-12-24 15:43 | Outpatient (CLI) | payer OTHER, SELFPAY | PROVIDERS: Visit Provider Internal Medicine Pulmonary Disease | DX: R06.09 Other forms of dyspnea (principal); J44.9 Chronic obstructive pulmonary disease, unspecified; F17.210 Nicotine dependence, cigarettes, uncomplicated | CPT/HCPCS: 94762 ==

== ENCOUNTER 2023-02-16 18:59 | Emergency (ER) | payer OTHER, SELFPAY ==
--- NOTE | 2023-02-16 19:01 | XR_ITS ---
PROCEDURE INFORMATION: Exam: XR Right Ankle Exam date and time: 02/16/2023 7:09 PM Age: 42 years old Clinical indication: Injury or trauma; Fall; Blunt trauma; Ankle and foot; Right TECHNIQUE: Imaging protocol: Radiologic exam of the right ankle. Views: 3 or more views. COMPARISON: No relevant prior studies available. FINDINGS: Bones/joints: No acute fracture or dislocation. Soft tissues: Mild soft tissue swelling around the ankle. IMPRESSION: No acute fracture or dislocation.
--- NOTE | 2023-02-16 19:05 | XR_ITS ---
PROCEDURE INFORMATION: Exam: XR Right Foot Exam date and time: 02/16/2023 7:13 PM Age: 42 years old Clinical indication: Injury or trauma; Fall; Blunt trauma; Ankle and foot; Right TECHNIQUE: Imaging protocol: Radiologic exam of the right foot. Views: 3 or more views. COMPARISON: CR Ankle R 11/08/2023 19:09 FINDINGS: Bones/joints: Nonanatomic lucency in the navicular bone best seen on AP image. Soft tissues: Normal. IMPRESSION: Nonanatomic lucency in the navicular bone best seen on AP image. This is suspicious for a nondisplaced fracture.
[2023-02-16 19:40] VITALS: BP 116/74; PULSE 97; RESP 18; TEMP 37.2; O2SAT 98; BMI 31.8
--- NOTE | 2023-02-16 20:06 | EXP.UTC ---
Discharge Plan Disposition Patient Disposition: Home, Self-Care Condition: Good Prescriptions Prescriptions: New ibuprofen [IBU] 800 mg tablet 800 mg PO TIDP PRN (Reason: Moderate Pain) Qty: 20 0RF No Action ipratropium-albuterol 0.5 mg-3 mg(2.5 mg base)/3 mL solution for nebulization 3 ml inhalation QID PRN (Reason: shortness of breath or wheezing) 90 Days Qty: 270 3RF fluticasone propionate [Flovent HFA] 220 mcg/actuation HFA aerosol inhaler 1 puff inhalation BID Qty: 12 2RF Bevespi Aerosphere 9-4.8 mcg HFA aerosol inhaler 2 puff inhalation BID Qty: 10.7 2RF albuterol sulfate 90 mcg/actuation aerosol powdr breath activated 2 inh inhalation Q6H PRN (Reason: shortness of breath or wheezing) 30 Days Qty: 1 0RF (DME) Aerochamber Plus Flow-Vu Spacer See Rx Instructions .Route Qty: 1 0RF Rx Instructions: As directed atorvastatin 10 mg tablet 10 mg PO DAILY Referrals Follow up/Referrals: Biju Sanford DO [Staff Physician] - See instructions (Call office in the morning for appointment) Provider,Referral, [Primary Care Provider] - See instructions Activity Restrictions/Add. Instructions Additional Instructions/Restrictions: *No weight bearing use crutches to get around *RICE, Rest the extremity, Ice 15-20 minutes 3-4 times daily, Compress- wear the michell wrap as discussed as much as possible to help reduce swelling and pain, Elevate the extremity when at rest *Walking boot is for support and help control swelling, Be sure that is not to tight but not to loose either *Elevate when resting? *Ibuprofen 800mg every 6-8 hours as needed for pain an inflammation. If need something more can take Tylenol in between doses of Ibuprofen to help Immediately follow up with your family doctor for new or worsening of symptoms, or no noticeable improvement over the next 3-5 days Call Orthopedic office in the morning for appointment Further care per Orthopedic office Clinical Impressions Clinical Impression: Fx navicular, foot-closed Qualifiers: Encounter type: initial encounter Fracture alignment: nondisplaced Laterality: right Qualified Code(s): S92.254A - Nondisplaced fracture of navicular [scaphoid] of right foot, initial encounter for closed fracture Instructions Patient Instructions: How to Use Crutches, How To Perform RICE (Rest, Ice, Compress, Elevate), How to Use a Walking Boot Discharge ED Provider: May Dwyer [facility] [place] General Stated complaint: AO01/10@1100 RT ankle inj Mode of Arrival: Ambulatory Source of Information: Patient Limitations: No Limitations Time Seen by Provider: 02/16/23 19:50 Description of Symptoms (Recalled from Triage Doc. by RN): Pt fell off an 8 ft ladder and hurt R foot and ankle. HEENT Symptoms (Recalled from RN notes): No Resp Symptoms (Recalled from RN notes): No Skin Symptoms (Recalled from RN notes): No MS Symptoms (Recalled from RN notes): Yes Functional Status (Recalled from RN notes): n/a History of Present Illness Provider Complaint: Patient states that he was up on the ladder and started to fall and slide down the ladder and landed on his feet around 11am States that he thought it was ok but this evening he was still having some pain and swelling so he came in to get it checked Denies pain in back or hips and denies any other injury Related Data Home Medications Medication Instructions Recorded Confirmed atorvastatin 10 mg tablet 10 mg PO DAILY 02/16/23 02/16/23 Previous Rx's Medication Instructions Recorded albuterol sulfate 90 mcg/actuation 2 inh inhalation Q6H PRN shortness 10/18/22 breath activated powder inhaler of breath or wheezing 30 days #1 ea inhalational spacing device #1 ea 10/18/22 (Aerochamber Plus Flow-Vu) fluticasone propionate 220 1 puff inhalation BID #12 grams 10/28/22 mcg/actuation HFA aerosol inhaler (Flovent HFA) glycopyrrolate 9 mcg-formoterol 2 puff inhalation BID #10.7 grams 10/28/22 4.8 mcg HFA aerosol inhaler (Bevespi Aerosphere) ipratropium 0.5 mg-albuterol 3 mg 3 ml inhalation QID PRN shortness 11/25/22 (2.5 mg base)/3 mL nebulization of breath or wheezing 90 days #270 soln mL ibuprofen 800 mg tablet (IBU) 800 mg PO TIDP PRN Moderate Pain 02/16/23 #20 tabs Allergies Allergy/AdvReac Type Severity Reaction Status Date / Time No Known Allergies Allergy Verified 02/16/23 20:05 Worker's Comp Is this a Worker's Comp case?: No [facility] Disclaimer: The information contained in this section may have been updated after the patient was seen, as this information can be updated by other users. Medical History Abnormality of lung on CXR Allergic rhinitis COPD mixed type Dyspnea on exertion Family history of ischemic heart disease before age 50 Smoking greater than 20 pack years Stopped smoking with greater than 20 pack year history Surgical History No history of previous surgery Family History Other Heart attack Social History Smoking Status: Current every day smoker alcohol intake: never substance use type: denies use current occupational status: employed Travel in the last 8 weeks: Inside the [place] household members: family ROS Obtained: Yes All systems reviewed & no additional complaints except as documented and Yes Systems reviewed as appropriate & no additional complaints except as documented Constitutional Constitutional: Reports system reviewed and no additional complaints, except as documented and Reports as per HPI ENT Ears, Nose, Mouth, and Throat: Reports system reviewed and no additional complaints, except as documented and Reports as per HPI Cardiovascular Cardiovascular: Reports system reviewed and no additional complaints, except as documented and Reports as per HPI Respiratory Respiratory: Reports system reviewed and no additional complaints, except as documented and Reports as per HPI Gastrointestinal Gastrointestingal: Reports system reviewed and no additional complaints, except as documented and as per HPI Musculoskeletal Musculoskeletal: Reports system reviewed and no additional complaints, except as documented, Reports as per HPI and Reports other Comments: pain and swelling in right foot and ankle after falling from ladder today around 11am Physical Exam General General appearance: alert and in no apparent distress ENT ENT exam: Present mucous membranes moist Respiratory Respiratory exam: Present normal lung sounds bilaterally; Absent respiratory distress Cardiovascular Cardiovascular exam: Present regular rate, normal rhythm and normal heart sounds Expanded Lower Extremity Exam Right: Ankle exam: Present tenderness and swelling Ankle image: 1. reports pain and tenderness when he tries to put weight on it or moves it Foot/toe exam: Present tenderness, swelling and ecchymosis Neurovascular/Tendon exam: Present normal capillary refill; Absent pulse deficit Gait: not tested/not observed Neurological Exam Neurological exam: Present alert, oriented X3 and normal gait Medical Decision Making Albert Inquiry Pt receiving controlled substance: No Albert was queried for this patient: No Vital Signs: 02/16/23 19:40 Temperature 98.9 F Temperature Source Oral Pulse Rate [Right Radial] 97 H Respiratory Rate 18 Blood Pressure [Right Arm] 116/74 Blood Pressure Mean [Right Arm] 88 Blood Pressure Source [Right Arm] Automatic Cuff Blood Pressure Position [Right Arm] Sitting 02 Sat by Pulse Oximetry 98 Oxygen Delivery Method Room Air Orders (Tests/Meds): ORDERS Category Date Time Status XR ankle RT min 3V Stat Exams 02/16/23 19:01 Completed XR foot RT min 3V Stat Exams 02/16/23 19:05 Completed Radiology Data #1: Image(s): Foot/Toes Image Reviewed: Yes I have reviewed radiologist's interpretation IMPRESSION: Nonanatomic lucency in the navicular bone best seen on AP image. This is suspicious for a nondisplaced fracture. #2: Image(s): Ankle Image Reviewed: Yes I have reviewed radiologist's interpretation FINDINGS: Bones/joints: No acute fracture or dislocation. Soft tissues: Mild soft tissue swelling around the ankle. IMPRESSION: No acute fracture or dislocation. Physician Consults Physician Consulted: Dr Sanford Time: 20:13 Reason -: Orthopedic Eval/Care Comment/Response: Spoke with Dr Sanford and advised him of xray finding, will place in walking boot, crutches and have him call the office in the morning for appointment Procedures Orthopedic Splinting/Casting Injury #1: Side: right Lower Extremity Injury Location: foot Lower Extremity Immobilizer: boot orthosis Other Orthopedic Equipment: crutches Post Cast/Splinting Neuro Status: intact and no change Post Cast/Splinting Vasc Status: intact and no change
[2023-02-16] MEDS: IBUPROFEN 400 MG TABLET 800 MG PO (20:16)
[2023-02-16 20:36] VITALS: BP 116/74; PULSE 97; RESP 18; TEMP 37.2; O2SAT 98
== END 2023-02-16 20:36 | disposition home or self-care (01) ==
PROVIDERS: Emergency Provider Nurse Practitioner
DX: S92.254A Nondisplaced fracture of navicular [scaphoid] of right foot, initial encounter for closed fracture (principal); F17.210 Nicotine dependence, cigarettes, uncomplicated; J44.9 Chronic obstructive pulmonary disease, unspecified; W11.XXXA Fall on and from ladder, initial encounter
CPT/HCPCS: 73610; 73630; 99212; 99214; G0463

== ENCOUNTER 2023-04-14 10:42 | Outpatient (CLI) | payer OTHER, SELFPAY ==
--- NOTE | 2023-04-14 10:49 | XR_ITS ---
FINAL REPORT CLINICAL HISTORY: right foot fx, f/u COMPARISON: Report dated 02/16/2023 FINDINGS: Right foot Three views were obtained. There is a prominent medial navicular with presumed accessory navicular. No definite acute fracture is identified. The joint spaces appear normal. No soft tissue abnormality is identified. IMPRESSION: No definite acute fracture. If indicated, MRI could further evaluate. Reviewed, Interpreted and Dictated by Guanaco Forde III, MD Transcribed by Jami Arriaga Authenticated and [facility]
== END 2023-04-14 23:59 ==
PROVIDERS: Visit Provider Orthopaedic Surgery
DX: M79.671 Pain in right foot (principal); S92.901A Unspecified fracture of right foot, initial encounter for closed fracture
CPT/HCPCS: 73630